=== PATIENT | male | born 1930 | race Caucasian/White ===

== ENCOUNTER 2018-05-19 19:59 | Inpatient (IN) | payer OTHER ==
[~2018-05-19] VITALS: Ht 172.7 cm; Wt 58.0 kg
[2018-05-19 20:40] LABS: PLATELET COUNT 207 x10^3mcL (130-400); RED CELL DISTRIBUTION WIDTH 13.6 % (11.5-14.5)
[2018-05-19 21:12] LABS: BAND NEUTROPHIL 7 % (0-10); BASOPHIL 0 % (0-2); MONOCYTE 3 % (0-7); SEGMENTED NEUTROPHILS 83 % (37-75)
[2018-05-19 21:13] LABS: rbc morphology (normal/abnorm) ABNORMAL (NORMAL)
[2018-05-19 21:15] LABS: burr cell (echinocyte) 2+
[2018-05-19 21:42] LABS: ALKALINE PHOSPHATASE 72 U/L (46-116); AST/SGOT 31 U/L (15-37); BILIRUBIN TOTAL 1.1 mg/dL (0.20-1.00); CALCIUM 7.3 mg/dL (8.5-10.1); CHLORIDE SERUM 96 mmol/L (98-107); CREATININE SERUM 2.8 mg/dL (0.7-1.3); GLUCOSE SERUM 74 mg/dL (74-106); LIPASE 31 IU/L (73-393); SODIUM SERUM 132 mmol/L (136-145)
[2018-05-19 21:47] LABS: ALBUMIN 1.2 g/dL (3.4-5.0); TOTAL PROTEIN, SERUM 4.3 g/dL (6.4-8.2)
[2018-05-19 21:48] LABS: CARBON DIOXIDE 7.9 mmol/L (21-32); POTASSIUM SERUM 2.9 mmol/L (3.5-5.1)
[2018-05-19 22:11] LABS: ALT/SGPT 16 U/L (16-63)
[2018-05-20 05:56] VITALS: BP 103/58
[2018-05-20 06:08] LABS: PLATELET COUNT 162 x10^3mcL (130-400); RED CELL DISTRIBUTION WIDTH 13.7 % (11.5-14.5)
[2018-05-20 07:08] LABS: CALCIUM 7.1 mg/dL (8.5-10.1); CHLORIDE SERUM 100 mmol/L (98-107); CREATININE SERUM 2.1 mg/dL (0.7-1.3); GLUCOSE SERUM 81 mg/dL (74-106); POTASSIUM SERUM 3.1 mmol/L (3.5-5.1); SODIUM SERUM 134 mmol/L (136-145)
[2018-05-20 08:00] VITALS: BP 107/61
[2018-05-20 08:40] VITALS: Ht 172.7 cm; Wt 58.0 kg
[2018-05-20 10:19] LABS: BAND NEUTROPHIL 28 % (0-10); BASOPHIL 0 % (0-2); MONOCYTE 30 % (0-7); SEGMENTED NEUTROPHILS 33 % (37-75)
[2018-05-20 10:21] LABS: PLATELET MORPHOLOGY PLATELETS DECREASED; rbc morphology (normal/abnorm) ABNORMAL (NORMAL)
[2018-05-20 12:00] VITALS: BP 87/59
[2018-05-20 16:00] VITALS: BP 104/64
[2018-05-20 19:30] VITALS: BP 132/79
[2018-05-20 23:45] VITALS: BP 122/69
[2018-05-21 03:06] VITALS: BP 128/64
[2018-05-21 05:07] LABS: RED CELL DISTRIBUTION WIDTH 13.5 % (11.5-14.5)
[2018-05-21 05:24] LABS: BASOPHIL % 0 % (0-2); PLATELET COUNT 59 x10^3mcL (130-400)
[2018-05-21 05:39] LABS: ALKALINE PHOSPHATASE 63 U/L (46-116); ALT/SGPT 30 U/L (16-63); AST/SGOT 78 U/L (15-37); BILIRUBIN TOTAL 0.93 mg/dL (0.20-1.00); CALCIUM 6.9 mg/dL (8.5-10.1); CARBON DIOXIDE 19.3 mmol/L (21-32); CHLORIDE SERUM 102 mmol/L (98-107); CREATININE SERUM 1.4 mg/dL (0.7-1.3); GLUCOSE SERUM 213 mg/dL (74-106); MAGNESIUM 1.4 mg/dL (1.8-2.4); PHOSPHOROUS 1.3 mg/dL (2.5-4.9); POTASSIUM SERUM 4.5 mmol/L (3.5-5.1); SODIUM SERUM 127 mmol/L (136-145)
[2018-05-21 05:41] LABS: ALBUMIN 1.4 g/dL (3.4-5.0); TOTAL PROTEIN, SERUM 3.8 g/dL (6.4-8.2)
[2018-05-21 08:22] VITALS: BP 127/65
[2018-05-21 13:01] VITALS: BP 110/70
[2018-05-21 15:50] VITALS: BP 137/92
[2018-05-21 19:25] VITALS: BP 129/72
[2018-05-21 23:16] VITALS: BP 105/71
[2018-05-22 03:25] VITALS: BP 103/92
[2018-05-22 05:42] LABS: ALKALINE PHOSPHATASE 79 U/L (46-116); ALT/SGPT 32 U/L (16-63); AST/SGOT 39 U/L (15-37); BILIRUBIN TOTAL 0.76 mg/dL (0.20-1.00); CALCIUM 7.8 mg/dL (8.5-10.1); CARBON DIOXIDE 23.8 mmol/L (21-32); CHLORIDE SERUM 103 mmol/L (98-107); CREATININE SERUM 0.9 mg/dL (0.7-1.3); GLUCOSE SERUM 206 mg/dL (74-106); SODIUM SERUM 137 mmol/L (136-145)
[2018-05-22 05:43] LABS: TOTAL PROTEIN, SERUM 4.9 g/dL (6.4-8.2)
[2018-05-22 07:41] LABS: PLATELET COUNT 41 x10^3mcL (130-400)
[2018-05-22 07:42] LABS: SEGMENTED NEUTROPHILS 95 % (37-75); rbc morphology (normal/abnorm) NORMAL (NORMAL)
[2018-05-22 07:43] LABS: PLATELET MORPHOLOGY PLATELETS DECREASED
[2018-05-22 08:00] VITALS: BP 126/78
[2018-05-22 11:19] VITALS: BP 124/87
[2018-05-22 15:25] VITALS: BP 127/84
[2018-05-22 21:30] VITALS: BP 131/82
[2018-05-23] VITALS (10 sets, daily range): BP systolic 74–126; BP diastolic 46–78
[2018-05-23 04:34] LABS: CALCIUM 8.1 mg/dL (8.5-10.1); CARBON DIOXIDE 21.5 mmol/L (21-32); CHLORIDE SERUM 105 mmol/L (98-107); CREATININE SERUM 0.8 mg/dL (0.7-1.3); GLUCOSE SERUM 259 mg/dL (74-106); POTASSIUM SERUM 3.4 mmol/L (3.5-5.1); RED CELL DISTRIBUTION WIDTH 13.8 % (11.5-14.5); SODIUM SERUM 138 mmol/L (136-145)
[2018-05-23 04:49] LABS: PLATELET COUNT 43 x10^3mcL (130-400)
[2018-05-23 05:08] LABS: BAND NEUTROPHIL 3 % (0-10); BASOPHIL 0 % (0-2); MONOCYTE 2 % (0-7); SEGMENTED NEUTROPHILS 91 % (37-75)
[2018-05-23 05:09] LABS: rbc morphology (normal/abnorm) ABNORMAL (NORMAL)
[2018-05-23 05:11] LABS: PLATELET MORPHOLOGY PLATELETS DECREASED
[2018-05-23 05:16] LABS: burr cell (echinocyte) 1+
[2018-05-24] VITALS (17 sets, daily range): BP systolic 95–125; BP diastolic 55–85
[2018-05-24 05:58] LABS: CALCIUM 7.4 mg/dL (8.5-10.1); CARBON DIOXIDE 24.8 mmol/L (21-32); CHLORIDE SERUM 109 mmol/L (98-107); CREATININE SERUM 0.8 mg/dL (0.7-1.3); GLUCOSE SERUM 139 mg/dL (74-106); MAGNESIUM 1.2 mg/dL (1.8-2.4); PHOSPHOROUS 2.2 mg/dL (2.5-4.9); POTASSIUM SERUM 3.6 mmol/L (3.5-5.1); SODIUM SERUM 140 mmol/L (136-145)
[2018-05-24 06:04] LABS: BASOPHIL % 0.1 % (0-2)
[2018-05-24 06:07] LABS: PLATELET COUNT 42 x10^3mcL (130-400)
[2018-05-25] VITALS (12 sets, daily range): BP systolic 108–131; BP diastolic 59–73
[2018-05-25 04:39] LABS: BASOPHIL % 0.2 % (0-2); RED CELL DISTRIBUTION WIDTH 13.2 % (11.5-14.5)
[2018-05-25 04:43] LABS: CALCIUM 7.8 mg/dL (8.5-10.1); CARBON DIOXIDE 27.5 mmol/L (21-32); CHLORIDE SERUM 108 mmol/L (98-107); CREATININE SERUM 0.8 mg/dL (0.7-1.3); GLUCOSE SERUM 132 mg/dL (74-106); POTASSIUM SERUM 3.5 mmol/L (3.5-5.1); SODIUM SERUM 140 mmol/L (136-145)
[2018-05-25 04:52] LABS: PLATELET COUNT 83 x10^3mcL (130-400)
== END 2018-05-25 18:48 | disposition expired | DRG 853 ==
LOC: ED 19:59 → IC 22:55
PROVIDERS: Emergency Medicine; Internal Medicine; Internal Medicine Cardiovascular Disease; Surgery
PROC: 0DH60UZ Insertion of Feeding Device into Stomach, Open Approach (ICD-10-PCS; 2018-05-20)
PROC: 0DBB0ZZ Excision of Ileum, Open Approach (ICD-10-PCS; principal; 2018-05-20 00:30)
PROC: 5A1945Z Respiratory Ventilation, 24-96 Consecutive Hours (ICD-10-PCS; 2018-05-23)
PROC: 0BH17EZ Insertion of Endotracheal Airway into Trachea, Via Natural or Artificial Opening (ICD-10-PCS; 2018-05-23)
DX: A41.9 Sepsis, unspecified organism (principal); K55.021 Focal (segmental) acute infarction of small intestine; K65.0 Generalized (acute) peritonitis; K63.1 Perforation of intestine (nontraumatic); K40.40 Unilateral inguinal hernia, with gangrene, not specified as recurrent; R65.21 Severe sepsis with septic shock; J96.01 Acute respiratory failure with hypoxia; J18.9 Pneumonia, unspecified organism; E87.2 Acidosis; E87.1 Hypo-osmolality and hyponatremia; Z68.1 Body mass index [BMI] 19.9 or less, adult; K56.7 Ileus, unspecified; E87.6 Hypokalemia; I95.9 Hypotension, unspecified; Z66 Do not resuscitate; Z51.5 Encounter for palliative care
CPT/HCPCS: 36600; 82962; 83880; 87107; 88344; 94150; 97530-GP; A4628; C1751; G0480; J0282; J0330; J0690; J0696; J1644; J1940; J1956; J2060; J2250; J2270; J2543; J2704; J2710; J3010; J3475; J3480; J3490; J7030; J7040; J7050; J7120; J7131; J7620; P9047; P9059; Q0092